=== PATIENT | male | born 1970 | race Caucasian/White ===

== ENCOUNTER 2016-10-02 16:52 | Inpatient (IN) | payer OTHER ==
[~2016-10-02] VITALS: Ht 188 cm; Wt 113.4 kg
--- NOTE | ~2016-10-02 | HP ---
Unit #: [id number] #: [id number] Patient: CHRIS DICK [id number] [facility] [address] [place] [address] [id number] I MR#: [id number] NAME: CHRIS DICK ROOM: P185 Age: 45 Sex: M Admission Date: 10/03/2016 : 1970 Attending Physician: Marian Macario M.D. Admitting Physician: Marian Macario M.D. Primary Care Physician: Primary Care Physician No HISTORY AND PHYSICAL HISTORY OF PRESENT ILLNESS Chris is a 45-year-old male admitted on 10/03/2016 to [facility] for detox from heroin and meth and suicidal ideation. PAST MEDICAL HISTORY Type II diabetes, hepatitis C, hypertension and GERD and hyperlipidemia. PAST SURGICAL HISTORY None documented. SOCIAL HISTORY Smokes one pack of cigarettes daily, denies alcohol use. Does report daily use of heroin and meth. He is currently and homeless. FAMILY HISTORY Noncontributory. REVIEW OF SYSTEMS CONSTITUTIONAL: No fever or chills. HEENT: Denies any sore throat, ear pain or runny nose. CARDIOVASCULAR: Denies chest pain, irregular heart rhythm or palpitations. CHEST: Denies shortness of breath or cough. No hemoptysis. GASTROINTESTINAL: Denies nausea, vomiting, diarrhea or chronic constipation. ENDOCRINE: Denies history of increased thirst or urination. No recent significant weight loss or gain. GENITOURINARY: Denies dysuria, frequency, or hematuria. SKIN: Denies any rashes. HEMATOLOGIC: Denies history of increased bleeding or bruising. MUSCULOSKELETAL: Denies any hot, swollen joints. No generalized muscle pain. NEUROLOGIC: Denies problems with vision or speech. No frequent, severe headaches. No numbness, tingling or weakness in any extremities. Denies loss of bladder or bowel control. CURRENT MEDICATIONS Atorvastatin, lisinopril/HCTZ and Protonix. ALLERGIES Keflex Unit #: [id number] #: [id number] Patient: CHRIS DICK PHYSICAL EXAMINATION GENERAL: Alert, oriented, in no acute distress. VITAL SIGNS: Blood pressure 134/78, heart rate 72, respirations 18. HEIGHT: 6 foot 2 inches. WEIGHT: 250 pounds. SKIN: Warm and dry without rash or lesion. HEENT: Normocephalic. TMs not viewed. Oral and nasal passages clear. Conjunctivae clear. PERRLA. EOMs intact. NECK: Supple without lymphadenopathy or thyromegaly. HEART: Regular rate and rhythm without murmur. LUNGS: Clear. ABDOMEN: Soft, nontender, without masses or hepatosplenomegaly. : Not done. EXTREMITIES: No evidence of cyanosis, clubbing or edema. Moves all without focal deficit. NEUROLOGICAL: Grossly within normal limits. Cranial Nerves: II: Visual moreno are intact. III, IV AND : Extraocular movements are intact. Pupils are equal, round and reactive to light. V: Facial sensation is grossly normal. VII: Facial movements and expression are normal. VIII: Auditory acuity grossly intact. IX, X: Uvula is midline. Phonation is normal. XI: Patient shrugs shoulders and turns head normally. XII: Tongue protrudes in the midline. Sensory and Motor Function: Sensory and motor sensation is grossly normal. Motor: moves all extremities well. Coordination: Gait is normal. Deep Tendon Reflexes: Intact. IMPRESSION 1. Psychiatric admission. 2. Hepatitis C. 3. Hypertension. 4. GERD. 5. Hyperlipidemia. RECOMMENDATIONS Psychiatric, per psychiatrist. MEDICAL: I see no contraindications to participating in facility's activities. MEDICAL PROGNOSIS Good. MEDICAL CONDITION Stable. Dictated by... Reginald Varghese/genie TD: 10/04/2016 01:20 JOB #: [id number] Unit #: [id number] #: [id number] Patient: CHRIS DICK HISTORY AND PHYSICAL Page 1 of 1 X PARVIN NORIEGA APRN HISTORY AND PHYSICAL
--- NOTE | ~2016-10-02 | PN ---
Unit #: [id number] #: [id number] Patient: TRAVIS POP [id number] [facility] [address] [place] [address] [id number] I MR#: [id number] NAME: TRAVIS POP ROOM: [facility] Age: 45 Sex: M Admission Date: 10/03/2016 : 1970 Attending Physician: Marian Macario M.D. Admitting Physician: Marian Macario M.D. Primary Care Physician: Primary Care Physician Syeda RODRIGUEZ PROGRESS NOTES DATE 10/06/2016 DISCUSSION Mr. Pop is a 45-year-old male who was seen today and chart was reviewed and case was discussed with the staff. He has been anxious, withdrawn, rather seclusive to himself. Meanwhile, he has been cooperative with treatment recommendations and still reports being in distress and discomfort. He has been taking medications and tolerating them fairly well. MENTAL STATUS EXAMINATION Middle-aged white male who was casually dressed with fair personal hygiene and appears to be in no acute distress or discomfort. He was awake and alert with intact orientation. His mood was anxious with congruent affect. He denies any suicidal or homicidal ideation. His insight and judgement remains slightly impaired. TREATMENT PLAN 1. Will continue on his current medications and treatment protocol. Will monitor his response to medications and make further adjustments as needed. 2. Will continue to follow up. Dictated by... Marian Macario M.D. IAA/jayleen TD: 10/06/2016 21:16 JOB #: [id number] Unit #: [id number] #: [id number] Patient: TRAVIS POP NORMANAGATHA PROGRESS NOTES Page 1 of 1 X Marian Macario MD PROGRESS NOTE
--- NOTE | ~2016-10-02 | PN ---
Unit #: [id number] #: [id number] Patient: TRAVIS DICK [id number] [facility] [address] [place] [address] [id number] I MR#: [id number] NAME: TRAVIS DICK ROOM: [facility] Age: 45 Sex: M Admission Date: 10/03/2016 : 1970 Attending Physician: Marian Macario M.D. Admitting Physician: Marian Macario M.D. Primary Care Physician: Primary Care Physician Syeda DUBON NOTES DATE October 07, 2016 DISCUSSION Mr. Dick is a 45-year-old white male, who was seen today and chart was reviewed and the case was discussed with the staff. He has been anxious, withdrawn, and seclusive to himself. Meanwhile, he has been cooperative with the treatment recommendations and he has been taking the medications and tolerating them fairly well with no reported side effects. MENTAL STATUS EXAMINATION Middle-aged white male, who was casually dressed with fair personal hygiene and appears to be in no acute distress or discomfort. He was awake and alert on interaction with intact orientation. His mood is anxious with a congruent affect. He denies any suicidal or homicidal ideations, and also denies any auditory or visual hallucinations. His insight and judgment remain slightly impaired. TREATMENT PLAN 1. We will continue him on his current medications and treatment protocol, and will monitor his response to the medications, and make further adjustments as needed. 2. We will continue to followup. Dictated by... Glory Mark/jaqueline TD: 10/08/2016 09:15 JOB #: [id number] Unit #: [id number] #: [id number] Patient: TRAVIS DICK MICHAEL PROGRESS NOTES Page 1 of 1 X Marian Macario MD PROGRESS NOTE
--- NOTE | ~2016-10-02 | PN ---
Unit #: [id number] #: [id number] Patient: TRAVIS DICK [id number] [facility] [address] [place] [address] [id number] I MR#: [id number] NAME: TRAVIS DICK ROOM: [facility] Age: 45 Sex: M Admission Date: 10/03/2016 : 1970 Attending Physician: Marian Macario M.D. Admitting Physician: Marian Macario M.D. Primary Care Physician: Primary Care Physician Syeda DUBON NOTES DATE October 08, 2016 DISCUSSION Mr. Dick is a 45-year-old white male, who was seen today and chart was reviewed and the case was discussed with the staff. He was anxious, withdrawn, depressed, and rather seclusive to himself. Meanwhile, he has been cooperative with the treatment recommendations, and he has been taking the medications and tolerating them fairly well with no reported side effects. MENTAL STATUS EXAMINATION Middle-aged white male, who was casually dressed with fair personal hygiene and appears to be in no acute distress or discomfort. He was awake and alert on interaction with intact orientation. His mood is anxious and depressed with a congruent affect. His speech is slow and goal-directed. He denies any suicidal or homicidal ideations, and also denies any auditory or visual hallucinations. His insight and judgment remain slightly impaired. TREATMENT PLAN 1. We will continue him on his current medications and treatment protocol, and will monitor his response to the medications, and make further adjustments as needed. 2. We will continue to followup. Dictated by... Glory Mark/jaqueline TD: 10/09/2016 05:34 JOB #: [id number] Unit #: [id number] #: [id number] Patient: TRAVIS DICK NORMANAGATHA PROGRESS NOTES Page 1 of 1 X Marian Macario MD PROGRESS NOTE
--- NOTE | ~2016-10-02 | PN ---
Unit #: [id number] #: [id number] Patient: TRAVIS DICK [id number] [facility] [address] [place] [address] [id number] I MR#: [id number] NAME: TRAVIS DICK ROOM: [facility] Age: 45 Sex: M Admission Date: 10/03/2016 : 1970 Attending Physician: Marian Macario M.D. Admitting Physician: Marian Macario M.D. Primary Care Physician: Primary Care Physician Syeda RODRIGUEZ PROGRESS NOTES DATE October 04, 2016 DISCUSSION Mr. Dick is a 45-year-old white male, who was seen today and chart was reviewed and the case was discussed with the staff. He has been anxious, withdrawn, and rather seclusive to himself. Meanwhile, he has been cooperative with the treatment recommendations and he has been taking the medications and tolerating them fairly well with no reported side effects. MENTAL STATUS EXAMINATION Middle-aged white male, who was casually dressed with fair personal hygiene and appears to be in no acute distress or discomfort. He was awake and alert on interaction with intact orientation. His mood is anxious with a congruent affect. He denies any suicidal or homicidal ideations. His insight and judgment remain slightly impaired. TREATMENT PLAN 1. We will continue him on his current medications and treatment protocol, and will monitor his response to the medications, and make further adjustments as needed. 2. We will continue to followup. Dictated by... Glory Mark/jaqueline TD: 10/04/2016 13:11 JOB #: [id number] Unit #: [id number] #: [id number] Patient: TRAVIS DICK MICHAEL PROGRESS NOTES Page 1 of 1 X Marian Macario MD PROGRESS NOTE
--- NOTE | ~2016-10-02 | DS ---
Unit #: [id number] #: [id number] [facility] [id number] [facility] [address] [place] [address] [id number] I MR#: [id number] NAME: TRAVIS POP ROOM: [facility] Age: 45 Sex: M Admission Date: 10/03/2016 : 1970 Discharge Date: 10/09/2016 Attending Physician: Marian Macario M.D. Primary Care Physician: Primary Care Physician No DISCHARGE SUMMARY IDENTIFYING DATA Mr. Pop is a 45-year-old white male, who is a resident of [place], [place], and was transferred to us from [facility]. DISCHARGE DIAGNOSES Psychiatric: Opioid dependence, moderate and acute withdrawals; methamphetamine dependence, moderate; opioid-induced mood disorder. Medical: Hypertension, gastroesophageal reflux disease, dyslipidemia. Stressors: Moderate psychosocial stressors. HISTORY OF PRESENT ILLNESS Please see initial psychiatric evaluation for details. PAST PSYCHIATRIC HISTORY Please see initial psychiatric evaluation for details. PAST MEDICAL HISTORY Please see initial psychiatric evaluation for details. HOSPITAL COURSE The patient was admitted to the adult psychiatric unit at [facility] david Kay and was oriented to the hospital environment. Routine p.r.n. medications were initiated, and he was started back on his home medications and detox protocol was initiated as well. He was taking the medications regularly and tolerating them fairly well and was able to show a decent and therapeutic response with improvement in depression and anxiety, and was willing to continue treatment on an outpatient basis and as such, it was decided he will be discharged home and will continue treatment on an outpatient basis. DISCHARGE MEDICATIONS Zestril 20 mg a day for hypertension, Lipitor 40 mg a day for dyslipidemia, Oretic 25 mg a day for hypertension, Protonix 40 mg a day for acid reflux. DISCHARGE CONDITION Stable. PROGNOSIS Fair. Unit #: [id number] #: [id number] Patient: TRAVIS POP Dictated by... Marian Macario M.D. IAA/modl TD: 10/09/2016 23:18 JOB #: [id number] DISCHARGE SUMMARY Page 1 of 1 X Marian Macario MD X DISCHARGE SUMMARY
--- NOTE | ~2016-10-02 | PA ---
Unit #: [id number] #: [id number] [facility]: [facility]ICK [id number] [facility] [place] [address] [id number] I MR#: [id number] NAME: TRAVIS DICK ROOM: P185 Age: 45 Sex: M Admission Date: 10/03/2016 : 1970 Date of Assessment: Attending Physician: Marian Macario M.D. Admitting Physician: Marian Macario M.D. Primary Care Physician: Primary Care Physician No PSYCHIATRIC ASSESSMENT DATE OF SERVICE 10/03/2016. IDENTIFYING DATA Mr. Dick is a 45-year-old white male, who is a resident of [place], [place], and was transferred to us from [facility]. CHIEF COMPLAINT "I want to kill myself however it takes." HISTORY OF PRESENT ILLNESS Mr. Dick is a 45-year-old white male, who took himself to the emergency room reporting that he has been having suicidal ideation and that he wants to kill himself whatever way he has to and reports he has been using heroin and methamphetamine, "I used always, smoke, shoot all the ways." He was seen to be angry, agitated, irritable, impulsive, and was expressing feelings of hopelessness and helplessness, and suicidal ideation and was seen to be a danger to self and therefore, recommendation for inpatient level of care for safety and stabilization was made and the patient was transferred to us. SUBSTANCE ABUSE HISTORY The patient reports history of opioids and methamphetamine abuse and reports that he has been using both of them on regular basis via all available routes. PAST PSYCHIATRIC HISTORY The patient reports history of inpatient chemical dependency treatment at [facility] and multiple other places, but has been struggling to achieve any sobriety. He is currently not active in any treatment program, is not seeing a psychiatrist, and is not taking any psychotropic medications. PAST MEDICAL HISTORY The patient's medical history is significant for hepatitis C, hypertension, diabetes mellitus. ALLERGIES Cephalexin. PERSONAL AND SOCIAL HISTORY A 45-year-old white male, who reports that he is single, unemployed, and Unit #: [id number] #: [id number] Patient: TRAVIS DICK lives alone and describes himself to be homeless and reports poor social support system. MENTAL STATUS EXAMINATION Middle-aged white male who was casually dressed fair personal hygiene, appears to be in no acute distress or discomfort. He was awake and alert on interaction with intact orientation. His mood was anxious and depressed with a congruent affect. His speech was slow and restricted in content. His thought processes were disorganized with some looseness of associations and flight of ideas. His insight and judgment remain significantly impaired. DIAGNOSTIC IMPRESSION Psychiatric: Opioid dependence, moderate and acute withdrawals; methamphetamine dependence, moderate; opioid-induced mood disorder. Medical: None. Stressors: Moderate psychosocial stressors. TREATMENT PLAN 1. The patient has presented with history of mood disorder and substance abuse, and has been decompensating and will need inpatient hospitalization for detoxification, safety, and stabilization. We will start him back on his home medications. We will adjust the medications and monitor response. 2. Supportive therapy was provided to the patient. 3. Safe, structured, and nourishing environment will be provided. ESTIMATED LENGTH OF STAY 5 to 7 days. ABILITY TO HELP SELF Limited. WILLINGNESS TO HELP SELF The patient appears to be willing to help self. STRENGTHS 1. Communicative. 2. Cooperative. PROBLEMS 1. Chronic dysphoric symptoms. 2. Chronic chemical dependency. 3. Poor social support system. DISCHARGE CRITERIA This will be contingent upon the patient's ability to show resolution of his depression and anxiety and his ability to stay safe to himself, particularly after discharge from the hospital. Dictated by... Glory Mark/smiley TD: 10/03/2016 07:02 JOB #: [id number] Unit #: [id number] #: [id number] Patient: TRAVIS DICK PSYCHIATRIC ASSESSMENT Page 1 of 1 X Marian Macario MD X PSYCHIATRIC ASSESSMENT
--- NOTE | ~2016-10-02 | PN ---
Unit #: [id number] #: [id number] Patient: TRAVIS POP [id number] [facility] [address] [place] [address] [id number] I MR#: [id number] NAME: TRAVIS POP ROOM: [facility] Age: 45 Sex: M Admission Date: 10/03/2016 : 1970 Attending Physician: Marian Macario M.D. Admitting Physician: Marian Macario M.D. Primary Care Physician: Primary Care Physician Syeda DUBON NOTES DATE OF SERVICE 10/05/2016 DISCUSSION Mr. Pop is a 45-year-old white male who was seen today. Chart was reviewed and case was discussed with the staff. He has been anxious, withdrawn, and rather seclusive to himself. Meanwhile, he has been cooperative with treatment recommendation and has been taking the medications and tolerating them fairly well with no reported side effects. MENTAL STATUS EXAMINATION Middle-aged white male who is casually dressed with fair personal hygiene, appears to be in no acute distress or discomfort. He was awake and alert with intact orientation. His mood is anxious with congruent affect. He denies any suicidal or homicidal ideations. His insight and judgment remain slightly impaired. TREATMENT PLAN 1. We will continue him on his current medications and treatment protocol. We will monitor his response to the medications and make further adjustments as needed. 2. We will continue to follow up. Dictated by... Marian Macario M.D. IAA/bzg TD: 10/05/2016 10:23 JOB #: [id number] MICHAEL PROGRESS NOTES Page 1 of 1 X Marian Macario MD PROGRESS NOTE
[~2016-10-02 16:52] MED LIST: BACTRIM DS TABL1 TA1 PO; BACTROBAN15 GM TOP; GABAPENTIN400 M2 PO; IBUPROFEN200 M1; NORVASC PO; PRILOSEC20 MG PO
== END 2016-10-09 15:40 | DRG 897 ==
LOC: P1E 10-03 00:33
PROC: HZ2ZZZZ Detoxification Services for Substance Abuse Treatment (ICD-10-PCS; principal; 2016-10-03)
DX: F11.23 Opioid dependence with withdrawal (principal); F15.20 Other stimulant dependence, uncomplicated; F11.24 Opioid dependence with opioid-induced mood disorder
CPT/HCPCS: 82947; 86592